=== PATIENT | male | born 1950 | race Caucasian/White ===

== ENCOUNTER 2022-11-29 09:39 | Outpatient (REF) | payer MEDICARE, SELFPAY ==
[2022-11-29 12:06] LABS: Uric Acid 9.4 mg/dL (3.4-7.0)
== END 2022-11-29 09:40 | disposition home or self-care (01) ==
LOC: HO.WFDLDS 09:39
PROVIDERS: Visit Provider Nurse Practitioner Family
DX: M10.9 Gout, unspecified (principal)
CPT/HCPCS: 36415; 84550

== ENCOUNTER 2023-10-17 09:16 | Outpatient (AMB) | payer MEDICARE, SELFPAY ==
--- OUTSIDE RECORDS SUMMARY | 2023-10-17 09:17 | XMS_ITS | Continuity of Care Document ---
Author Organization [facility] Address [address] [place] [address]- Care Team Providers Care Improvement Analyst Name Role Phone Cornelia RODRIGUEZ, Traci Acuña Primary Care Physician [place] [facility] [place] 06/29/21 - 08/08/[address] [address] Attending Physician: Brenda Piper MD Admitting Physician: Brenda Piper MD Referring Physician: Brenda Piper MD Allergies, Adverse Reactions, Alerts Substance Reaction Severity Status penicillins 1 Active 1Hives as a child Immunizations Given and Recorded Vaccine Date Status Refusal Reason influenza virus vaccine, inactivated 04/01/21 Gildardo rded influenza virus vaccine, inactivated 03/16/20 Gildardo rded influenza virus vaccine, inactivated 03/21/18 Gildardo rded influenza virus vaccine, inactivated 04/12/17 Gildardo rded influenza virus vaccine, inactivated 03/09/16 Gildardo rded influenza virus vaccine, inactivated 03/18/15 Gildardo rded SARS-CoV-2 (COVID-19) mRNA-1273 vaccine 08/05/20 R ecorded zoster vaccine, inactivated 05/16/20 Recorded zoster vaccine, inactivated 09/23/14 Recorded pneumococcal 23-valent vaccine 04/12/17 Recorded pneumococcal 23-valent vaccine 12/26/11 Recorded pneumococcal 13-valent vaccine 08/12/15 Recorded pneumococcal 13-valent vaccine 09/23/14 Recorded Influenza Virus Vaccine (oldterm) 03/01/13 Recorde d diphtheria/tetanus/pertussis, acel(DTaP) 12/26/11 Recorded Medications acetaminophen 325 mg oral tablet 975 mg, By Mouth, Every 6 hours, Refills 0, Maintenance, 10/03/20 11:32:00 EDT, Partial fill upon patient request if the prescription is for a schedule II opioid drug. Start Date: 10/03/20 Status: Ordered aspirin 81 mg oral delayed release tablet 1 tablet = 81 mg, By Mouth, Daily, # 180 tablet, 0 Refills, Maintenance, 10/03/20 11:32:00 EDT, EC Tablet, [facility] #[id number], Partial fill upon patient request if the prescription is for a schedule II opioid drug., 179, cm, 10/03/20 11:30:00... Start Date: 10/03/20 Stop Date: 04/01/21 Status: Ordered atorvastatin 80 mg oral tablet 1 tablet = 80 mg, By Mouth, Daily at bedtime, # 90 tablet, 3 Refills, Maintenance, 11/11/20 10:55:00 EDT, Tablet, [facility] #[id number], Partial fill upon patient request if the prescription is for a schedule II opioid drug., 179, cm, 11/11/20 10... Start Date: 11/11/20 Status: Ordered clopidogrel 75 mg oral tablet 1, tablet, By Mouth, Daily, # 90 tablet, Refills 3, Tot. Refills 3, Maintenance, 11/11/20 10:55:00 EDT, Route to Pharmacy Electronically, [facility] #[id number], 179, cm, 11/11/20 10:24:00 EDT, Height, 82, kg, 10/26/20 14:24:00 EDT, Dry Weight Start Date: 11/11/20 Status: Ordered Januvia 100 mg oral tablet 1 tablet, By Mouth, Daily, # 30 tablet, 5 Refills, 06/08/21 9:19:00 EST, [facility] #[id number], 178, cm, 05/21/21 10:47:00 EST, Height, 86.2, kg, 04/17/21 10:50:00 EST, Dry Weight Start Date: 06/08/21 Status: Ordered lisinopril 10 mg oral tablet 1, tablet, By Mouth, Daily in AM, # 30 tablet, Refills 2, Route to Pharmacy Electronically, [facility] #[id number], 178, cm, 05/21/21 10:47:00 EST, Height, 86.2, kg, 04/17/21 10:50:00 EST, Dry Weight Start Date: 07/14/21 Status: Ordered MetFORMIN (Eqv-Glucophage XR) 500 mg oral tablet, extended release See Instructions, TAKE 2 TABLETS BY MOUTH ONCE DAILY AT SUPPER, # 60 tablet, 5 Refills, 06/14/21 11:11:00 EST, [facility] #[id number], 178, cm, 05/21/21 10:47:00 EST, Height, 86.2, kg, 04/17/21 10:50:00 EST, Dry Weight Start Date: 06/14/21 Status: Ordered metoprolol 25 mg oral tablet, extended release 25 mg, 1, tablet, By Mouth, Daily, # 90 tablet, Refills 3, Tot. Refills 3, Maintenance, 06/03/21 15:35:00 EST, Route to Pharmacy Electronically, [facility] #[id number], Partial fill upon patient request if the prescription is for a schedule II opi... 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
--- OUTSIDE RECORDS SUMMARY | 2023-10-17 09:17 | XMS_ITS | Continuity of Care Document ---
Author Organization [facility] Address [address] [place] [address]- Care Team Providers Care Student Services Counselor Name Role Phone Braxton Goins MD Primary Care Physician [phone] [place] [facility] [place]/23 [facility] [address] [place] [id number] Allergies, Adverse Reactions, Alerts Substance Reaction Severity Status penicillins 1 Active 1Hives as a child Immunizations Given and Recorded Vaccine Date Status Refusal Reason influenza virus vaccine, inactivated 04/01/22 Gildardo rded influenza virus vaccine, inactivated 04/01/21 Gildardo rded influenza virus vaccine, inactivated 03/16/20 Gildardo rded influenza virus vaccine, inactivated 03/21/18 Gildardo rded influenza virus vaccine, inactivated 04/12/17 Gildardo rded influenza virus vaccine, inactivated 03/09/16 Gildardo rded influenza virus vaccine, inactivated 03/18/15 Gildardo rded SARS-CoV-2 (COVID-19) mRNA-1273 vaccine 07/07/21 R ecorded SARS-CoV-2 (COVID-19) mRNA-1273 vaccine 08/05/20 R ecorded zoster vaccine, inactivated 05/16/20 Recorded zoster vaccine, inactivated 09/23/14 Recorded pneumococcal 23-valent vaccine 04/12/17 Recorded pneumococcal 23-valent vaccine 12/26/11 Recorded pneumococcal 13-valent vaccine 08/12/15 Recorded pneumococcal 13-valent vaccine 09/23/14 Recorded Influenza Virus Vaccine (oldterm) 03/01/13 Recorde d diphtheria/tetanus/pertussis, acel(DTaP) 12/26/11 Recorded Medications aspirin 81 mg oral delayed release tablet 1 tablet = 81 mg, By Mouth, Daily, # 180 tablet, 0 Refills, Maintenance, 10/03/20 11:32:00 EDT, EC Tablet, [facility] #[id number], Partial fill upon patient request if the prescription is for a schedule II opioid drug., 179, cm, 10/03/20 11:30:00... Start Date: 10/03/20 Stop Date: 04/01/21 Status: Ordered atorvastatin 80 mg oral tablet 1 tablet, By Mouth, Daily at bedtime, # 90 tablet, 1 Refills, Maintenance, 03/01/23 7:38:00 EDT, [facility] #[id number], 171.5, cm, 11/24/22 8:58:00 EDT, Height, 86.2, kg, 04/17/21 10:50:00 EST, Dry Weight Start Date: 03/01/23 Status: Ordered Golytely - oral powder for reconstitution See Instructions, drink half after 5pm evening before procedure, finish remaining half 6 hours prior to procedure time, # 4,000 mL, 0 Refills, Maintenance, 04/20/23 14:16:00 EST, [facility]/pharmacy #[id number], Partial fill upon patient request if the prescriptio... Start Date: 04/20/23 Status: Ordered hydrochlorothiazide 25 mg oral tablet 12.5 mg, 0.5, tablet, By Mouth, Daily, # 30 tablet, Refills 3, Tot. Refills 3, 05/05/23 15:18:00 EST, Route to Pharmacy Electronically, [facility] #[id number], 178, cm, 05/01/23 10:35:00 EST, Height, 84.7, kg, 05/01/23 10:35:00 EST, Dry Weight Start Date: 05/05/23 Status: Ordered Januvia 100 mg oral tablet 1 tablet, By Mouth, Daily, # 30 tablet, 5 Refills, Maintenance, 03/02/23 6:46:00 EDT, [facility] #[id number], 171.5, cm, 11/24/22 8:58:00 EDT, Height, 86.2, kg, 04/17/21 10:50:00 EST, Dry Weight Start Date: 03/02/23 Status: Ordered lisinopril 20 mg oral tablet 1, tablet, By Mouth, Daily, # 30 tablet, Refills 4, Maintenance, 05/30/23 7:47:00 EST, Route to Pharmacy Electronically, [facility] #[id number], 178, cm, 05/01/23 10:35:00 EST, Height, 84.7, kg, 05/01/23 10:35:00 EST, Dry Weight Start Date: 05/30/23 Status: Ordered lisinopril 20 mg oral tablet 1, tablet, By Mouth, Daily, # 30 tablet, Refills 0, Maintenance, 05/01/23 7:22:00 EST, Route to Pharmacy Electronically, [facility] #[id number], 178, cm, 04/02/23 10:09:00 EDT, Height, 82.6, kg, 04/02/23 10:09:00 EDT, Dry Weight Start Date: 05/01/23 Status: Ordered metoprolol 25 mg oral tablet, extended release 25 mg, 1, tablet, By Mouth, Daily, # 90 tablet, Refills 3, Tot. Refills 3, Maintenance, 08/11/22 12:35:00 EST, Route to Pharmacy Electronically, [facility] #[id number], Partial fill upon patient request if the prescription is for a schedule II opi... Start Date: 08/11/22 Stop Date: 08/06/23 Status: Ordered nitroglycerin 0.4 mg sublingual spray 1 sprays = 0.4 mg, Sublingual, Every 5 minutes, PRN as needed for chest pain, not to exceed 3 doses/15 min--if pain persists, seek medical attention, # 4.9 Gm, 0 Refills, Maintenance, 04/02/23 17:52:00 EDT, [place], [facility]/pharmacy #[id number], Partial fill upon... Start Date: 04/02/23 Status: Ordered tamsulosin 0.4 mg oral capsule 0.8 mg, 2, capsule, By Mouth, Daily at bedtime, # 180 capsule, Refills 1, Tot. Refills 1, Maintenance, 11/24/22 9:32:00 EDT, Route to Pharmacy Electronically, [facility] #[id number], 171.5, cm, 11/24/22 8:58:00 EDT, Height, 86.2, kg, 04/17/21 10:5... 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 Active Urinary frequency Confirmed Active Irritable bowel syndrome Confirmed Active Hypercholesterolemia Confirmed Active Rhinitis Confirmed Active Steatosis of liver Confirmed Active DMII (diabetes mellitus, type 2) Confirmed Active Social History Social History Type Response Smoking Status Former smoker, quit more than 30 days ago; Other: quit 1981; entered on: 09/21/20 Sex Patient Care team information Care Team Personnel Name: Raymond MONZON, Lena Knapp Position: [facility] RN Member Role: Primary Care Nurse Name: Robinson Kaufman RN Position: [facility] ED RN W/OE and Tasks Member Role: Primary Care Nurse Name: Genesis Workman Position: [facility] RN Member Role: Primary Care Nurse Name: Donna Quinonez RN Position: [facility] RN Member Role: Primary Care Nurse Name: Elodia Bright RN Position: [facility] AMB Nurse Member Role: Primary Care Nurse Name: Samantha Oviedo RN Position: [facility] RN Member Role: Primary Care Nurse Name: Braxton Goins MD Position: [facility] Physician - Primary Care Member Role: PCP Address: Address: [address] [place] [address], [address] [place] [address]- Name: Elal Means RN Position: [facility] RN Member Role: Primary Care Nurse Care Team Related Persons Name: RODNEY THORPE Address: home [address] [place] [address] Name: JANELLE THORPE Address: [address] [place] [address]
--- OUTSIDE RECORDS SUMMARY | 2023-10-17 09:17 | XMS_ITS | Continuity of Care Document ---
Author Organization [facility] Address [address] [address]- Care Team Providers Care Fast Food Crew Lead Name Role Phone Cornelia RODRIGUEZ, Traci Acuña Primary Care Physician [place] [facility] [place]20 [facility] [address] [address]- Attending Physician: Pavel Anderson MD Referring Physician: Gianluca Garrett MD Allergies, Adverse Reactions, Alerts Substance Reaction Severity Status penicillins 1 Active 1Hives as a child Immunizations Given and Recorded Vaccine Date Status Refusal Reason influenza virus vaccine, inactivated 03/16/20 Gildardo rded pneumococcal 13-valent vaccine 09/23/14 Recorded zoster vaccine, inactivated 09/23/14 Recorded Influenza Virus Vaccine (oldterm) 03/01/13 Recorde d pneumococcal 23-valent vaccine 12/26/11 Recorded diphtheria/tetanus/pertussis, acel(DTaP) 12/26/11 Recorded Medications acetaminophen 325 mg oral tablet 975 mg, By Mouth, Every 6 hours, Refills 0, Maintenance, 10/03/20 11:32:00 EDT, Partial fill upon patient request if the prescription is for a schedule II opioid drug. Start Date: 10/03/20 Status: Ordered amiodarone 200 mg oral tablet 200 mg, 1, tablet, By Mouth, 2 times a day, # 60 tablet, Refills 0, Tot. Refills 0, Maintenance, 10/03/20 11:32:00 EDT, Route to Pharmacy Electronically, [facility] #[id number], Partial fill uponpatient request if the prescription is for a schedu... Start Date: 10/03/20 Status: Ordered aspirin 81 mg oral delayed release tablet 1 tablet = 81 mg, By Mouth, Daily, # 180 tablet, 0 Refills, Maintenance, 10/03/20 11:32:00 EDT, EC Tablet, [facility] #[id number], Partial fill upon patient request if the prescription is for a schedule II opioid drug., 179, cm, 10/03/20 11:30:00... Start Date: 10/03/20 Stop Date: 04/01/21 Status: Ordered atorvastatin 80 mg oral tablet 1 tablet = 80 mg, By Mouth, Daily at bedtime, # 30 tablet, 5 Refills, Maintenance, 10/17/20 14:50:00 EDT, Tablet, [facility] #[id number], Partial fill upon patient request if the prescription is for a schedule II opioid drug., 179, cm, 10/13/20 10... Start Date: 10/17/20 Status: Ordered Januvia 100 mg oral tablet 1 tablet, By Mouth, Daily, # 30 tablet, 5 Refills, Maintenance, 09/17/20 12:34:00 EDT, [facility] #[id number] Start Date: 09/17/20 Status: Ordered Lasix 40 mg oral tablet 40 mg, 1, tablet, By Mouth, Daily, # 30 tablet, Refills 0, Tot. Refills 0, Maintenance, 10/03/20 11:33:00 EDT, Route to Pharmacy Electronically, [facility] #[id number], Partial fill upon patient request if the prescription is for a schedule II opi... Start Date: 10/03/20 Status: Ordered MetFORMIN (Eqv-Glucophage XR) 500 mg oral tablet, extended release See Instructions, TAKE 2 TABLETS BY MOUTH ONCE DAILY AT SUPPER, # 60 tablet, 5 Refills, Maintenance, [facility] #[id number] Start Date: 09/17/20 Status: Ordered metoprolol 100 mg oral tablet, extended release 100 mg, 1, tablet, By Mouth, Daily, # 30 tablet, Refills 0, Tot. Refills 0, Maintenance, 10/03/20 11:33:00 EDT, Route to Pharmacy Electronically, [facility] #[id number], Partial fill upon patientrequest if the prescription is for a schedule II op... Start Date: 10/03/20 Status: Ordered Plavix 75 mg oral tablet 75 mg, 1, tablet, By Mouth, Daily, # 30 tablet, Refills 0, Tot. Refills 0, Maintenance, 10/03/20 11:32:00 EDT, Route to Pharmacy Electronically, [facility] #[id number], Partial fill upon patient request if the prescription is for a schedule II opi... Start Date: 10/03/20 Status: Ordered potassium chloride 10 mEq oral tablet, extended release 4 tablet = 40 mEq, By Mouth, Daily, discontinue when lasix stopped, # 120 tablet, 0 Refills, Maintenance, 10/03/20 11:35:00 EDT, ER Tablet, [facility] #[id number], Partial fill upon patient request if the prescription is for a schedule II opioid d... 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 Irritable bowel syndrome(Confirmed) Active Hypercholesterolemia(Confirmed) Active Rhinitis(Confirmed) Active Steatosis of liver(Confirmed) Active DMII (diabetes mellitus, typ e 2)(Confirmed) Active Vital Signs Most recent to oldest [Reference Range]: 1 Height 179 cm (10/13/20 10:28 AM) Weight 82.10 kg (10/13/20 10: AM) Oxygen Saturation [94-100 %] 99 % (10/13/20 10: AM) Pulse Rate [55-90 bpm] 60 bpm (10/13/20 10:28 AM) Body Mass Index [18.5-24.99] 25.62 *H* (10/13/20 10:28 AM) Blood Pressure [90-138/55-84 mm Hg] 112/ 70mm Hg (10/13/20 10:28 AM) Respiratory Rate [16-30 br/min] 16 br/mi n (10/13/20 10:28 AM) Temperature [96.8-100.4 DegF] 98.4 DegF (10/13/20 10: AM) Mode of Delivery (Oxygen) Room air (10/13/20 10:28 AM) Blood pressure sites Arm, right (10/13/20 10:28 AM) Temperature Route Oral (10/13/20 10:28 AM) Weight Obtained Via Patient/family state d (10/13/20 10:28 AM) Social History Social History Type Response Smoking Status Former smoker, quit more than 30 days ago; Other: quit 1981; entered on: 09/21/20 Sex
--- OUTSIDE RECORDS SUMMARY | 2023-10-17 09:17 | XMS_ITS | Continuity of Care Document ---
Author Organization [facility] Address [address] [place] [address]- Care Team Providers Care Restaurant Crew Name Role Phone Cornelia RODRIGUEZ, Traci Acuña Primary Care Physician [place] [facility] [place] 05/08/22 [facility] [address] [place] [address]- Attending Physician: Brenda Piper MD Admitting Physician: Brenda Piper MD Allergies, Adverse Reactions, Alerts Substance Reaction Severity Status penicillins 1 Active 1Hives as a child Immunizations Given and Recorded Vaccine Date Status Refusal Reason SARS-CoV-2 (COVID-19) mRNA-1273 vaccine 07/07/21 R ecorded SARS-CoV-2 (COVID-19) mRNA-1273 vaccine 08/05/20 R ecorded influenza virus vaccine, inactivated 04/01/21 Gildardo rded influenza virus vaccine, inactivated 03/16/20 Gildardo rded influenza virus vaccine, inactivated 03/21/18 Gildardo rded influenza virus vaccine, inactivated 04/12/17 Gildardo rded influenza virus vaccine, inactivated 03/09/16 Gildardo rded influenza virus vaccine, inactivated 03/18/15 Gildardo rded zoster vaccine, inactivated 05/16/20 Recorded zoster vaccine, [...] 10/03/20 11:32:00 EDT, EC Tablet, [facility] #[id number], Partial fill upon patient request if the prescription is for a schedule II opioid drug., 179, cm, 10/03/20 11:30:00... Start Date: 10/03/20 Stop Date: 04/01/21 Status: Ordered atorvastatin 80 mg oral tablet 1 tablet, By Mouth, Daily at bedtime, # 90 tablet, 3 Refills, 03/07/22 8:51:00 EDT, [facility] #[id number], 178, cm, 01/07/22 10:54:00 EDT, Height, 86.2, kg, 04/17/21 10:50:00 EST, Dry Weight Start Date: 03/07/22 Status: Ordered hydrochlorothiazide 25 mg oral tablet 12.5 mg, 0.5, tablet, By Mouth, Daily, # 30 tablet, Refills 8, 01/07/22 16:41:00 EDT, Route to Pharmacy Electronically, [facility] #[id number], 178, cm, 10/07/21 8:40:00 EDT, Height, 86.2, kg, 04/17/21 10:50:00 EST, Dry Weight Start Date: 12/22/21 Status: Ordered Januvia 100 mg oral tablet 1 tablet, By Mouth, Daily, # 30 tablet, 5 Refills, [facility] #[id number], 178, cm, 10/07/21 8:40:00 EDT, Height, 86.2, kg, 04/17/21 10:50:00 EST, Dry Weight Start Date: 11/22/21 Status: Ordered lisinopril 20 mg oral tablet 20 mg, 1, tablet, By Mouth, Daily, # 30 tablet, Refills 6, Tot. Refills 6, Maintenance, 10/01/21 10:53:00 EDT, Route to Pharmacy Electronically, [facility] #[id number], Partial fill upon patient request if the prescription is for a schedule II opi... Start Date: 10/01/21 Status: Ordered lisinopril 20 mg oral tablet 1, tablet, By Mouth, Daily, # 30 tablet, Refills 11, Maintenance, 05/01/22 10:23:00 EST, Route to Pharmacy Electronically, [facility] #[id number], 178, cm, 01/07/22 10:54:00 EDT, Height, 86.2, kg, 04/17/21 10:50:00 EST, Dry Weight Start Date: 05/01/22 Status: Ordered MetFORMIN (Eqv-Glucophage XR) 500 mg oral tablet, extended release See Instructions, TAKE 2 TABLETS BY MOUTH EVERY DAY AT SUPPER, # 60 tablet, 5 Refills, [facility] #[id number], 178, cm, 10/07/21 8:40:00 EDT, Height, 86.2, kg, 04/17/21 10:50:00 EST, Dry Weight Start Date: 12/22/21 Status: Ordered metoprolol 25 mg oral tablet, extended release 25 mg, 1, tablet, By Mouth, Daily, # 90 tablet, Refills 3, Tot. Refills 3, Maintenance, 06/03/21 15:35:00 EST, Route to Pharmacy Electronically, [facility] #[id number], Partial fill upon patient request if the prescription is for a schedule II opi... 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 RN Member Role: Primary Care Nurse Name: Laura Shook RN Position: [facility] RN Member Role: Primary Care Nurse Name: Lena Andrade RN Position: [facility] RN Member Role: Primary Care Nurse Name: Robinson Kaufman RN Position: [facility] RN Member Role: Primary Care Nurse Name: Genesis Workman Position: [facility] RN Member Role: Primary Care Nurse Name: Donna Quinonez RN Position: [facility] RN Member Role: Primary Care Nurse Name: Elodia Bright RN Position: [facility] PCO RN Member Role: Primary Care Nurse Name: Cornelia RODRIGUEZ, Traci Acuña Position: [facility] Primary Care Physician Member Role: PCP Address: Address: [address] [place] [id number] Name: Samantha Oviedo RN Position: [facility] RN Member Role: Primary Care Nurse Name: Bebe Tam RN Position: [facility] RN Member Role: Primary Care Nurse Name: Ella Means RN Position: [facility] RN Member Role: Primary Care Nurse Care Team Related Persons Name: RODNEY THORPE Address: home [address] [place] [id number] Name: JANELLE THORPE Address: [address] [address]
--- OUTSIDE RECORDS SUMMARY | 2023-10-17 09:17 | XMS_ITS | Continuity of Care Document ---
Author Organization [facility] Address [address] [place] [phone]- Care Team Providers Care Lye Peel Operator Name Role Phone Cornelia RODRIGUEZ, Traci Acuña Primary Care Physician [place] [facility] [place] 11[place]11[place]21 - 12/11/21 [facility] [address] [place] [address]- Attending Physician: Cherelle Beckman Admitting Physician: AdmtrCherelle Referring Physician: Admtr, Ar8 Allergies, Adverse Reactions, Alerts Substance Reaction Severity [...] Refills, Maintenance, 10/03/20 11:32:00 EDT, EC Tablet, [facility] #[id number], Partial fill upon patient request if the prescription is for a schedule II opioid drug., 179, cm, 10/03/20 11:30:00... Start Date: 10/03/20 Stop Date: 04/01/21 Status: Ordered atorvastatin 80 mg oral tablet 1 tablet, By Mouth, Daily at bedtime, # 90 tablet, 0 Refills, [facility] #[id number], 178, cm, 10/07/21 8:40:00 EDT, Height, 86.2, kg, 04/17/21 10:50:00 EST, Dry Weight Start Date: 11/21/21 Status: Ordered hydrochlorothiazide 25 mg oral tablet 25 mg, 1, tablet, By Mouth, Daily, # 30 tablet, Refills 1, Tot. Refills 1, Maintenance, 10/21/21 11:10:00 EDT, Route to Pharmacy Electronically, [facility] #[id number], 178, cm, 10/07/21 8:40:00 EDT, Height, 86.2, kg, 04/17/21 10:50:00 EST, Dry We... Start Date: 10/21/21 Stop Date: 12/20/21 Status: Ordered Januvia 100 mg oral tablet 1 tablet, By Mouth, Daily, # 30 tablet, 5 Refills, [facility] #[id number], 178, cm, 10/07/21 8:40:00 EDT, Height, 86.2, kg, 04/17/21 10:50:00 EST, Dry Weight Start Date: 11/22/21 Status: Ordered lisinopril 20 mg oral tablet 20 mg, 1, tablet, By Mouth, Daily, # 30 tablet, Refills 6, Tot. Refills 6, Maintenance, 10/01/21 10:53:00 EDT, Route to Pharmacy Electronically, [facility] #[id number], Partial fill upon patient request if the prescription is for a schedule II opi... Start Date: 10/01/21 Status: Ordered MetFORMIN (Eqv-Glucophage XR) 500 mg oral tablet, extended release See Instructions, TAKE 2 TABLETS BY MOUTH ONCE DAILY AT SUPPER, # 60 tablet, 5 Refills, 06/14/21 11:11:00 EST, [facility] #[id number], 178, cm, 05/21/21 10:47:00 EST, Height, 86.2, kg, 04/17/21 10:50:00 EST, Dry Weight Start Date: 06/14/21 Status: Ordered metoprolol 25 mg oral tablet, extended release 25 mg, 1, tablet, By Mouth, Daily, # 90 tablet, Refills 3, Tot. Refills 3, Maintenance, 06/03/21 15:35:00 EST, Route to Pharmacy Electronically, [facility] #[id number], Partial fill upon patient request if the [...]
--- OUTSIDE RECORDS SUMMARY | 2023-10-17 09:18 | XMS_ITS | Continuity of Care Document ---
Author Organization [facility] Address [address] [address]- Care Team Providers Care Field Geologist Name Role Phone Cornelia RODRIGUEZ, Traci Acuña Primary Care Physician Encounter [facility] Date(s): 10/13/20 - 11/12/20 [facility] [address] [place] [address]- Attending Physician: Admtr, [id number] Admitting Physician: Admtr, Ar8 Referring Physician: Admtr, Ar8 Allergies, Adverse Reactions, Alerts Substance Reaction Severity Status penicillins 1 Active 1Hives as a child Immunizations Given and Recorded Vaccine Date Status Refusal Reason SARS-CoV-2 (COVID-19) [id number] vaccine 08/05/20 R ecorded zoster vaccine, inactivated 05/16/20 Recorded zoster vaccine, inactivated 09/23/14 Recorded influenza virus vaccine, inactivated 03/16/20 Gildardo rded influenza virus vaccine, inactivated 03/21/18 Gildardo rded influenza virus vaccine, inactivated 04/12/17 Gildardo rded influenza virus vaccine, inactivated 03/09/16 Gildardo rded influenza virus vaccine, inactivated 03/18/15 Gildardo rded pneumococcal 23-valent vaccine 04/12/17 Recorded pneumococcal 23-valent [...] Refills, Maintenance, 10/03/20 11:32:00 EDT, EC Tablet, [facility] #[id number], Partial fill upon patient request if the prescription is for a schedule II opioid drug., 179, cm, 10/03/20 11:30:00... Start Date: 10/03/20 Stop Date: 04/01/21 Status: Ordered atorvastatin 80 mg oral tablet 1 tablet = 80 mg, By Mouth, Daily at bedtime, # 90 tablet, 3 Refills, Maintenance, 11/11/20 10:55:00 EDT, Tablet, [facility] #[id number], Partial fill upon patient request if the prescription is for a schedule II opioid drug., 179, cm, 11/11/20 10... Start Date: 11/11/20 Status: Ordered clopidogrel 75 mg oral tablet 1, tablet, By Mouth, Daily, # 90 tablet, Refills 3, Tot. Refills 3, Maintenance, 11/11/20 10:55:00 EDT, Route to Pharmacy Electronically, [facility] #[id number], 179, cm, 11/11/20 10:24:00 EDT, Height, 82, kg, 10/26/20 14:24:00 EDT, Dry Weight Start Date: 11/11/20 Status: Ordered Januvia 100 mg oral tablet 1 tablet, By Mouth, Daily, # 30 tablet, 5 Refills, Maintenance, 09/17/20 12:34:00 EDT, [facility] #[id number] Start Date: 09/17/20 Status: Ordered MetFORMIN (Eqv-Glucophage XR) 500 mg oral tablet, extended release See Instructions, TAKE 2 TABLETS BY MOUTH ONCE DAILY AT SUPPER, # 60 tablet, 5 Refills, Maintenance, [facility] #[id number] Start Date: 09/17/20 Status: Ordered metoprolol 50 mg oral tablet, extended release 50 mg, 1, tablet, By Mouth, Daily, # 90 tablet, Refills 0, Tot. Refills 0, Maintenance, 11/11/20 10:51:00 EDT, Route to Pharmacy Electronically, [facility] #[id number], Partial fill upon patient request if the prescription is for a schedule II opi... 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
--- OUTSIDE RECORDS SUMMARY | 2023-10-17 09:18 | XMS_ITS | Continuity of Care Document ---
Author Organization [facility] Address [address] [place] [address]- Care Team Providers Care Steel Fabricator Name Role Phone Cornelia RODRIGUEZ, Traci Acuña Primary Care Physician Encounter [facility] [place] Date(s): 09/24/20 - 10/24/[address] [address]- Attending Physician: Not on Staff, Attending MD Admitting Physician: Not on Staff, Admitting MD Referring Physician: Not on Staff, Referring MD Allergies, Adverse Reactions, Alerts Substance Reaction [...] 10/03/20 11:32:00 EDT, Route to Pharmacy Electronically, [facility] #[id number], Partial fill uponpatient request if the prescription is for a schedu... Start Date: 10/03/20 Status: Ordered aspirin 81 mg oral delayed release tablet 1 tablet = 81 mg, By Mouth, Daily, # 180 tablet, 0 Refills, Maintenance, 10/03/20 11:32:00 EDT, EC Tablet, [facility] #[id number], Partial fill upon patient request if the prescription is for a schedule II opioid drug., 179, cm, 10/03/20 11:30:00... Start Date: 10/03/20 Stop Date: 04/01/21 Status: Ordered atorvastatin 80 mg oral tablet 1 tablet = 80 mg, By Mouth, Daily at bedtime, # 30 tablet, 5 Refills, Maintenance, 10/17/20 14:50:00 EDT, Tablet, [facility] #[id number], Partial fill upon patient request if the prescription is for a schedule II opioid drug., 179, cm, 10/13/20 10... Start Date: 10/17/20 Status: Ordered Januvia 100 mg oral tablet 1 tablet, By Mouth, Daily, # 30 tablet, 5 Refills, Maintenance, 09/17/20 12:34:00 EDT, [facility] #[id number] Start Date: 09/17/20 Status: Ordered Lasix 40 mg oral tablet 40 mg, 1, tablet, By Mouth, Daily, # 30 tablet, Refills 0, Tot. Refills 0, Maintenance, 10/03/20 11:33:00 EDT, Route to Pharmacy Electronically, [facility] #[id number], Partial fill upon patient request if the prescription is for a schedule II opi... Start Date: 10/03/20 Status: Ordered MetFORMIN (Eqv-Glucophage XR) 500 mg oral tablet, extended release See Instructions, TAKE 2 TABLETS BY MOUTH ONCE DAILY AT SUPPER, # 60 tablet, 5 Refills, Maintenance, [facility] #[id number] Start Date: 09/17/20 Status: Ordered metoprolol 100 mg oral tablet, extended release 100 mg, 1, tablet, By Mouth, Daily, # 30 tablet, Refills 0, Tot. Refills 0, Maintenance, 10/03/20 11:33:00 EDT, Route to Pharmacy Electronically, [facility] #[id number], Partial fill upon patientrequest if the prescription is for a schedule II op... Start Date: 10/03/20 Status: Ordered Plavix 75 mg oral tablet 75 mg, 1, tablet, By Mouth, Daily, # 30 tablet, Refills 0, Tot. Refills 0, Maintenance, 10/03/20 11:32:00 EDT, Route to Pharmacy Electronically, [facility] #[id number], Partial fill upon patient request if the prescription is for a schedule II opi... Start Date: 10/03/20 Status: Ordered potassium chloride 10 mEq oral tablet, extended release 4 tablet = 40 mEq, By Mouth, Daily, discontinue when lasix stopped, # 120 tablet, 0 Refills, Maintenance, 10/03/20 11:35:00 EDT, ER Tablet, [facility] #[id number], Partial fill upon patient request if the [...]
--- OUTSIDE RECORDS SUMMARY | 2023-10-17 09:18 | XMS_ITS | Continuity of Care Document ---
Author Organization [facility] Address [address] [place] [address]- Care Team Providers Care Dog Boarder Name Role Phone Cornelia RODRIGUEZ, Traic Acuña Primary Care Physician Encounter [facility] Date(s): 10/12/20 - 11/11/[address] [address] Allergies, Adverse Reactions, Alerts Substance Reaction Severity Status penicillins 1 Active 1Hives as a child Immunizations Given and Recorded Vaccine Date Status Refusal Reason SARS-CoV-2 (COVID-19) [id number] vaccine 08/05/20 R ecorded zoster vaccine, inactivated [...] Refills, Maintenance, 10/03/20 11:32:00 EDT, EC Tablet, [facility] #[id number], Partial fill upon patient request if the prescription is for a schedule II opioid drug., 179, cm, 10/03/20 11:30:00... Start Date: 10/03/20 Stop Date: 04/01/21 Status: Ordered atorvastatin 80 mg oral tablet 1 tablet = 80 mg, By Mouth, Daily at bedtime, # 90 tablet, 3 Refills, Maintenance, 11/11/20 10:55:00 EDT, Tablet, [facility] #[id number], Partial fill upon patient request if the prescription is for a schedule II opioid drug., 179, cm, 11/11/20 10... Start Date: 11/11/20 Status: Ordered clopidogrel 75 mg oral tablet 1, tablet, By Mouth, Daily, # 90 tablet, Refills 3, Tot. Refills 3, Maintenance, 11/11/20 10:55:00 EDT, Route to Pharmacy Electronically, [facility] #[id number], 179, cm, 11/11/20 10:24:00 EDT, Height, 82, kg, 10/26/20 14:24:00 EDT, Dry Weight Start Date: 11/11/20 Status: Ordered Januvia 100 mg oral tablet 1 tablet, By Mouth, Daily, # 30 tablet, 5 Refills, Maintenance, 09/17/20 12:34:00 EDT, [facility][id number] Start Date: 09/17/20 Status: Ordered MetFORMIN (Eqv-Glucophage XR) 500 mg oral tablet, extended release See Instructions, TAKE 2 TABLETS BY MOUTH ONCE DAILY AT SUPPER, # 60 tablet, 5 Refills, Maintenance, [facility] #[id number] Start Date: 09/17/20 Status: Ordered metoprolol 50 mg oral tablet, extended release 50 mg, 1, tablet, By Mouth, Daily, # 90 tablet, Refills 0, Tot. Refills 0, Maintenance, 11/11/20 10:51:00 EDT, Route to Pharmacy Electronically, [facility] #[id number], Partial fill upon patient request if the [...]
--- OUTSIDE RECORDS SUMMARY | 2023-10-17 09:18 | XMS_ITS | Continuity of Care Document ---
Author Organization [facility] Address [address] [place] [id number]- Care Team Providers Care Drawing Hand Name Role Phone Cornelia RODRIGUEZ, Traci M Primary Care Physician Encounter [facility] Date(s): 09/21/20 - 10/03/[address] [id number] Discharge Disposition: A-D/C Home Attending Physician: Monica RODRIGUEZ, Pavel Otero Admitting Physician: Abdoul Uribe MD Referring Physician: Not on Staff, Referring [...] 10/03/20 11:32:00 EDT, Route to Pharmacy Electronically, [facility] #[id number], Partial fill uponpatient request if the prescription is for a schedu... Start Date: 10/03/20 Status: Ordered aspirin 81 mg oral delayed release tablet 1 tablet = 81 mg, By Mouth, Daily, # 180 tablet, 0 Refills, Maintenance, 10/03/20 11:32:00 EDT, EC Tablet, [facility] #[id number], Partial fill upon patient request if the prescription is for a schedule II opioid drug., 179, cm, 10/03/20 11:30:00... Start Date: 10/03/20 Stop Date: 04/01/21 Status: Ordered atorvastatin 80 mg oral tablet 1 tablet = 80 mg, By Mouth, Daily at bedtime, # 30 tablet, 0 Refills, Maintenance, 10/03/20 11:32:00 EDT, Tablet, [facility] #[id number], Partial fill upon patient request if the prescription is for a schedule II opioid drug., 179, cm, 10/03/20 11... Start Date: 10/03/20 Status: Ordered gabapentin 100 mg oral capsule 200 mg, Capsule, By Mouth, 10/03/20 9:00:00 EDT Start Date: 10/03/20 Stop Date: 10/03/20 Status: Completed Januvia 100 mg oral tablet 1 tablet, By Mouth, Daily, # 30 tablet, 5 Refills, Maintenance, 09/17/20 12:34:00 EDT, [facility] #[id number] Start Date: 09/17/20 Status: Ordered Lasix 40 mg oral tablet 40 mg, 1, tablet, By Mouth, Daily, # 30 tablet, Refills 0, Tot. Refills 0, Maintenance, 10/03/20 11:33:00 EDT, Route to Pharmacy Electronically, [facility] #[id number], Partial fill upon patient request if the prescription is for a schedule II opi... Start Date: 10/03/20 Status: Ordered MetFORMIN (Eqv-Glucophage XR) 500 mg oral tablet, extended release See Instructions, TAKE 2 TABLETS BY MOUTH ONCE DAILY AT SUPPER, # 60 tablet, 5 Refills, Maintenance, [facility] #[id number] Start Date: 09/17/20 Status: Ordered metoprolol 100 mg oral tablet, extended release 100 mg, 1, tablet, By Mouth, Daily, # 30 tablet, Refills 0, Tot. Refills 0, Maintenance, 10/03/20 11:33:00 EDT, Route to Pharmacy Electronically, [facility] #[id number], Partial fill upon patientrequest if the prescription is for a schedule II op... Start Date: 10/03/20 Status: Ordered Metoprolol IR Tablet 50 mg, Tablet, By Mouth, When extubated, HOLD for HR less than 70 or SBP less than 100 or if on Vasopressors, 10/03/20 9:00:00 EDT Start Date: 10/03/20 Stop Date: 10/03/20 Status: Completed Plavix 75 mg oral tablet 75 mg, 1, tablet, By Mouth, Daily, # 30 tablet, Refills 0, Tot. Refills 0, Maintenance, 10/03/20 11:32:00 EDT, Route to Pharmacy Electronically, [facility] #[id number], Partial fill upon patient request if the prescription is for a schedule II opi... Start Date: 10/03/20 Status: Ordered potassium chloride 10 mEq oral tablet, extended release 4 tablet = 40 mEq, By Mouth, Daily, discontinue when lasix stopped, # 120 tablet, 0 Refills, Maintenance, 10/03/20 11:35:00 EDT, ER Tablet, [facility] #[id number], Partial fill upon patient request if the prescription is for a schedule II opioid d... 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 LUNGS AND PLEURA: Low lung volumes. Unchanged left lower lobe airspace opacity, likely representing atelectasis. Slightly increased prominence of interstitial markings bilaterally. Unchanged small right apical pneumothorax, with a 1.2 cm of pleural separation. Small left pleural effusion. No right-sided effusion. HEART, MEDIASTINUM AND MICAH: Mild prominence of the cardiac silhouette, unchanged. Normal upper mediastinal and hilar contour. BONES AND SOFT TISSUES: No acute abnormality. Median sternotomy wires are intact. IMPRESSION: * Unchanged small right apical pneumothorax and small pleural effusion. * Unchanged left lower lobe opacity likely representing atelectasis. * Increased prominence of interstitial markings likely reflecting mild interstitial edema. I have personally reviewed the images and I agree with this report. WSN: [id number] Ordering Physician: Josh Eason Dictated By: Piper Emmanuel MD Dictated Date/Time: 10/03/20 4:01 pm Reviewed By: Jay Prescott MD Signed By: Jay Prescott MD Signed Date/Time: 10/03/20 4:06 pm Transcribed By: SHAHBAZ Transcribed Date/Time: 10/03/20 12:18 pm * Exam Date Time Procedure Performing Provider Status 10/02/20 6:27 PM Chest Portable Olga Puentes; Renee (Verified) Notes: (Chest Portable) Reason For Exam: Shortness of Breath RESULT: Chest Portable Chest Portable Reason: Shortness of Breath; Clinical Question(s): Pneumothorax COMPARISON: X-ray from 10/02/2020 FINDINGS: LINES AND TUBES: None. LUNGS AND PLEURA: Small left apical pneumothorax reported on the prior study is decreased without the only 0.6 cm, previously 1.2 cm. There is some atelectasis at the left lung base with adjacent small left pleural effusion. The right lung is clear. HEART, MEDIASTINUM AND MICAH: Status post median sternotomy. Mild prominence of the cardiac silhouette, unchanged. Normal upper mediastinal and hilar contour. BONES AND SOFT TISSUES: No acute abnormality. IMPRESSION: Previously reported small left apical pleural effusion is decreased by 50%, now trace. There is a small left pleural effusion with some adjacent atelectasis not significantly changed. WSN: [id number] Ordering Physician: Josh Eason Dictated By: Ankit Arreola MD Dictated Date/Time: 10/02/20 6:30 pm Reviewed By: Ankit Arreola MD Signed By: Ankit Arreola MD Signed Date/Time: 10/02/20 6:30 pm Transcribed By: SHAHBAZ Transcribed Date/Time: 10/02/20 6:29 pm * Exam Date Time Procedure Performing Provider Status 10/02/20 3:48 PM Chest Portable Lu Pagan; Renee (Verified) Notes: (Chest Portable) Reason For Exam: PCT removal;Other: RESULT: Chest Portable Chest Portable Reason: Other:; PCT removal; Clinical Question(s): Pneumothorax COMPARISON: Multiple priors, most recent dated 10/02/2020 FINDINGS: LINES AND TUBES: Interval removal of the previously seen left-sided chest tube and mediastinal drain. Few EKG leads overlie the chest wall. LUNGS AND PLEURA: There is small left pneumothorax measuring approximately 1.2 cm of pleural separation at the left apex. Again noted are heterogeneous airspace opacities in the left lower lung, likely secondary to atelectasis. No focal opacity in the right lung. The lung volumes are low. No pleural effusion. No right pneumothorax. HEART, MEDIASTINUM AND MICAH: Patient is post median sternotomy and CABG. Stable cardiac silhouette. Normal upper mediastinal and hilar contour. BONES AND SOFT TISSUES: No acute abnormality. IMPRESSION: Small left pneumothorax, measuring approximately 1.2 cm of pleural separation at the left apex, likely related to recent removal of the left-sided chest tube. Mild left basilar atelectasis. . A Red message has been communicated via the [employer] system on 10/02/2020 4:10 PM, Message ID [id number]. WSN: [id number] Ordering Physician: Josh Eason Dictated By: Mariah Romeo MD Dictated Date/Time: 10/02/20 4:10 pm Reviewed By: Mariah Romeo MD Signed By: Mariah Romeo MD Signed Date/Time: 10/02/20 4:10 pm Transcribed By: SHAHBAZ Transcribed Date/Time: 10/02/20 4:07 pm * Exam Date Time Procedure Performing Provider Status 10/02/20 10:31 AM Chest Portable Maren Wells; Cynthia luna (Verified) Notes: (Chest Portable) Reason For Exam: Shortness of Breath RESULT: Chest Portable Chest Portable Reason: Shortness of Breath; Clinical Question(s): Pleural Effusion COMPARISON: Multiple priors, most recent 09/29/2020. FINDINGS: LINES AND TUBES: Status post removal of the right IJ [place]-Kai catheter. Mediastinum and left chest drains are stable. LUNGS AND PLEURA: Elevation of the left hemidiaphragm with developing left basilar airspace disease, concerning for atelectasis. Minimal airspace disease, likely atelectasis in the right lung base. Otherwise the lungs are clear. No large pleural effusion. No pneumothorax. HEART, MEDIASTINUM AND MICAH: The heart and mediastinal contours are stable BONES AND SOFT TISSUES: No acute abnormality. Intact sternal hardware. Mild degenerative changes in the spine. IMPRESSION: Elevation of the left hemidiaphragm with developing airspace disease in the lung base, likely developing atelectasis. WSN: [id number] Ordering Physician: Josh Eason Dictated By: Jay Prescott MD Dictated Date/Time: 10/02/20 11:24 a Reviewed By: Jay Prescott MD Signed By: Jay Prescott MD Signed Date/Time: 10/02/20 11:24 am Transcribed By: SHAHBAZ Transcribed Date/Time: 10/02/20 11:21 am * Exam Date Time Procedure Performing Provider Status 09/29/20 5:53 AM Chest Portable Rima Brooke; Aut h (Verified) Notes: (Chest Portable) Reason For Exam: S/P Cardiac Surgery RESULT: Chest Portable Chest Portable INDICATION: Status post cardiac surgery. COMPARISON: multiple priors, the most [id number]/2020. FINDINGS: LINES AND TUBES: Right IJ [place]-Kai catheter terminating at the right pulmonary artery. Unchanged mediastinal drain,left chest tube. Unchanged epicardial pacing wires. LUNGS AND PLEURA: Linear opacities at the right lung base, left retrocardiac region, likely atelectasis. Normal pulmonary vascularity. No pleural effusion. No pneumothorax. HEART, MEDIASTINUM AND MICAH: Heart is normal in size. Normal upper mediastinal and hilar contour. BONES AND SOFT TISSUES: No acute abnormality. IMPRESSION: Multiple linear opacities at bilateral lung bases, likely atelectasis. Support lines as above. I have personally reviewed the images and I agree with this report. WSN: [id number] Ordering Physician: Katy Boudreaux Dictated By: Main[Radiology] Jaki RODRIGUEZ Dictated Date/Time: 09/29/20 11:45 a Reviewed By: Hung Alford MD Signed By: Hung Alford MD Signed Date/Time: 09/29/20 11:50 am Transcribed By: SHAHBAZ Transcribed Date/Time: 09/29/20 11:40 am * Exam Date Time Procedure Performing Provider Status 09/28/20 6:48 PM Chest Portable Jackelin Mello; Renee ( Verified) Notes: (Chest Portable) Reason For Exam: S/P Cardiac Surgery RESULT: Chest Portable Chest Portable Reason: S P Cardiac Surgery; Special Instructions: On Admission to [facility] COMPARISON: 09/21/2020. FINDINGS: LINES AND TUBES: Endotracheal and enteric tubes are likely appropriately positioned. Right IJ introducer sheath and [place]-Kai catheter with its tip in the right main pulmonary artery. There are 2 mediastinal and single left pleural drains in place. Portions of percutaneous pacer leads are also identified. LUNGS AND PLEURA: Minimal basilar atelectasis. No pleural effusion. No pneumothorax. HEART, MEDIASTINUM AND MICAH: Heart is normal in size. Postsurgical changes suggesting CABG. BONES AND SOFT TISSUES: Multiple intact sternal wires. IMPRESSION: Expected immediate postoperative changes, lines and tubes appear appropriately positioned. WSN: [id number] Ordering Physician: Armaan Blackburn Dictated By: Parmjit Avilez MD Dictated Date/Time: 09/28/20 6:55 pm Reviewed By: Parmjit Avilez MD Signed By: Parmjit Avilez MD Signed Date/Time: 09/28/20 6:55 pm Transcribed By: SHAHBAZ Transcribed Date/Time: 09/28/20 6:52 pm Vital Signs Most recent to oldest [Reference Range]: 1 2 3 Height 179 cm (10/03/20 11:30 AM) 179 cm (10/03/20 8:08 AM) 179 cm (10/03/20 3:54 AM) Weight 91.0 kg (10/02/20 4:28 AM) 92.1 kg (10/01/20 7:16 AM) 90.8 kg (09/30/20 5:21 AM) Oxygen Saturation [94-100 %] 98 % (10/03/20 2:00 PM) 98 % (10/03/20 11:30 AM) 98 % (10/03/20 8:08 AM) Pulse Rate [55-90 bpm] 75 bpm (10/03/20 2:00 PM) 75 bpm (10/03/20 11:30 AM) 81 bpm (10/03/20 9:08 AM) Body Mass Index [18.5-24.99] 28.34 *H* (09/30/20 5:21 AM) 26.59 *H* (09/28/20 2:35 AM) 26.65 *H* (09/27/20 2:39 AM) Blood Pressure [90-138/55-84 mm Hg] 116/51mm Hg (10/03/20 2:00 PM) 116/51mm Hg (10/03/20 11:30 AM) 122/55mm Hg (10/03/20 9:08 AM) Respiratory Rate [16-30 br/min] 18 br/min (10/03/20 2:00 PM) 18 br/min (10/03/20 11:30 AM) 18 br/min (10/03/20 10:08 AM) Temperature [96.8-100.4 DegF] 98.3 DegF (10/03/20 2:00 PM) 98.3 DegF (10/03/20 11:30 AM) 98.6 DegF (10/03/20 8:08 AM) Liters per Minute 1 L/min (09/30/20 7:49 AM) 2 L/min (09/30/20 5:20 AM) 2 L/min (09/30/20 12:42 AM) Mode of Delivery (Oxygen) Room air (10/03/20 2:00 PM) Room air (10/03/20 11:30 AM) Room air (10/03/20 8:08 AM) Blood pressure sites Arm, right (10/03/20 11:30 AM) Arm, right (10/03/20 8:08 AM) Arm, right (10/03/20 3:54 AM) Temperature Route Oral (10/03/20 11:30 AM) Oral (10/03/20 8:08 AM) Oral (10/03/20 3:54 AM) Dry Weight 86.9 kg (09/21/20 11:45 PM) Weight Obtained Via Bed scale (10/02/20 4:28 AM) Bed scale (09/30/20 12:42 AM) Bed scale (09/28/20 2:35 AM) Dry Weight Obtained Via Bed scale (09/21/20 11:45 PM) Social History Social History Type Response Smoking Status Former smoker, quit more than 30 days ago; Other: quit 1981; entered on: 09/21/20 Sex
--- OUTSIDE RECORDS SUMMARY | 2023-10-17 09:18 | XMS_ITS | Continuity of Care Document ---
Author Organization [facility] Address [address] [place] [address]- Care Team Providers Care Band Presser Name Role Phone Cornelia RODRIGUEZ, Traci Acuña Primary Care Physician Encounter 10/04/20 - 10/22/20 [facility] [address] [place] [address]- Discharge Disposition: CLIENT NO LONGER REQUIRES SKILLED CARE Allergies, Adverse Reactions, Alerts Substance Reaction Severity [...] 10/03/20 11:32:00 EDT, Route to Pharmacy Electronically, [facility] #[id number], Partial fill uponpatient request if the prescription is for a schedu... Start Date: 10/03/20 Status: Ordered aspirin 81 mg oral delayed release tablet 1 tablet = 81 mg, By Mouth, Daily, # 180 tablet, 0 Refills, Maintenance, 10/03/20 11:32:00 EDT, EC Tablet, [facility] #[id number], Partial fill upon patient request if the prescription is for a schedule II opioid drug., 179, cm, 10/03/20 11:30:00... Start Date: 10/03/20 Stop Date: 04/01/21 Status: Ordered atorvastatin 80 mg oral tablet 1 tablet = 80 mg, By Mouth, Daily at bedtime, # 30 tablet, 5 Refills, Maintenance, 10/17/20 14:50:00 EDT, Tablet, [facility] #[id number], Partial fill upon patient request if the prescription is for a schedule II opioid drug., 179, cm, 10/13/20 10... Start Date: 10/17/20 Status: Ordered Januvia 100 mg oral tablet 1 tablet, By Mouth, Daily, # 30 tablet, 5 Refills, Maintenance, 09/17/20 12:34:00 EDT, [facility] #[id number] Start Date: 09/17/20 Status: Ordered Lasix 40 mg oral tablet 40 mg, 1, tablet, By Mouth, Daily, # 30 tablet, Refills 0, Tot. Refills 0, Maintenance, 10/03/20 11:33:00 EDT, Route to Pharmacy Electronically, [facility] #[id number], Partial fill upon patient request if the prescription is for a schedule II opi... Start Date: 10/03/20 Status: Ordered MetFORMIN (Eqv-Glucophage XR) 500 mg oral tablet, extended release See Instructions, TAKE 2 TABLETS BY MOUTH ONCE DAILY AT SUPPER, # 60 tablet, 5 Refills, Maintenance, [facility] #[id number] Start Date: 09/17/20 Status: Ordered metoprolol 100 mg oral tablet, extended release 100 mg, 1, tablet, By Mouth, Daily, # 30 tablet, Refills 0, Tot. Refills 0, Maintenance, 10/03/20 11:33:00 EDT, Route to Pharmacy Electronically, [facility] #[id number], Partial fill upon patientrequest if the prescription is for a schedule II op... Start Date: 10/03/20 Status: Ordered Plavix 75 mg oral tablet 75 mg, 1, tablet, By Mouth, Daily, # 30 tablet, Refills 0, Tot. Refills 0, Maintenance, 10/03/20 11:32:00 EDT, Route to Pharmacy Electronically, [facility] #[id number], Partial fill upon patient request if the prescription is for a schedule II opi... Start Date: 10/03/20 Status: Ordered potassium chloride 10 mEq oral tablet, extended release 4 tablet = 40 mEq, By Mouth, Daily, discontinue when lasix stopped, # 120 tablet, 0 Refills, Maintenance, 10/03/20 11:35:00 EDT, ER Tablet, [facility] #[id number], Partial fill upon patient request if the [...]
--- OUTSIDE RECORDS SUMMARY | 2023-10-17 09:18 | XMS_ITS | Continuity of Care Document ---
Author Organization [facility] Address [address] [place] [address]- Care Team Providers Care Manager Poker Name Role Phone Braxton Goins MD Primary Care Physician [phone] Encounter [facility] Date(s): 08/11/22 - 09/10/22 [facility] [address] [place] [address]- [place] Allergies, Adverse Reactions, Alerts Substance Reaction [...] Refills, Maintenance, 10/03/20 11:32:00 EDT, EC Tablet, [facility] #[id number], Partial fill upon patient request if the prescription is for a schedule II opioid drug., 179, cm, 10/03/20 11:30:00... Start Date: 10/03/20 Stop Date: 04/01/21 Status: Ordered atorvastatin 80 mg oral tablet 1 tablet, By Mouth, Daily at bedtime, # 90 tablet, 3 Refills, 03/07/22 8:51:00 EDT, [facility] #[id number], 178, cm, 01/07/22 10:54:00 EDT, Height, 86.2, kg, 04/17/21 10:50:00 EST, Dry Weight Start Date: 03/07/22 Status: Ordered hydrochlorothiazide 25 mg oral tablet 12.5 mg, 0.5, tablet, By Mouth, Daily, # 30 tablet, Refills 8, 01/07/22 16:41:00 EDT, Route to Pharmacy Electronically, [facility] #[id number], 178, cm, 10/07/21 8:40:00 EDT, Height, 86.2, kg, 04/17/21 10:50:00 EST, Dry Weight Start Date: 12/22/21 Status: Ordered Januvia 100 mg oral tablet 1 tablet, By Mouth, Daily, # 30 tablet, 5 Refills, Maintenance, 05/31/22 12:08:00 EST, [facility] #[id number], 178, cm, 05/16/22 9:59:00 EST, Height, 86.2, kg, 04/17/21 10:50:00 EST, Dry Weight Start Date: 05/31/22 Status: Ordered lisinopril 20 mg oral tablet 20 mg, 1, tablet, By Mouth, Daily, # 30 tablet, Refills 6, Tot. Refills 6, Maintenance, 10/01/21 10:53:00 EDT, Route to Pharmacy Electronically, [facility] #[id number], Partial fill upon patient request if the prescription is for a schedule II opi... Start Date: 10/01/21 Status: Ordered lisinopril 20 mg oral tablet 1, tablet, By Mouth, Daily, # 30 tablet, Refills 11, Maintenance, 05/01/22 10:23:00 EST, Route to Pharmacy Electronically, [facility] #[id number], 178, cm, 01/07/22 10:54:00 EDT, Height, 86.2, kg, 04/17/21 10:50:00 EST, Dry Weight Start Date: 05/01/22 Status: Ordered MetFORMIN (Eqv-Glucophage XR) 500 mg oral tablet, extended release See Instructions, TAKE 2 TABLETS BY MOUTH EVERY DAY AT SUPPER, # 60 tablet, 5 Refills, 07/14/22 10:53:00 EST, [facility] #[id number], 178, cm, 07/08/22 8:42:00 EST, Height, 86.2, kg, 04/17/21 10:50:00 EST, Dry Weight Start Date: 07/14/22 Status: Ordered metoprolol 25 mg oral tablet, extended release 25 mg, 1, tablet, By Mouth, Daily, # 90 tablet, Refills 3, Tot. Refills 3, Maintenance, 08/11/22 12:35:00 EST, Route to Pharmacy Electronically, [facility] #[id number], Partial fill upon patient request if the prescription is for a schedule II opi... Start Date: 08/11/22 Stop Date: 08/06/23 Status: Ordered tamsulosin 0.4 mg oral capsule 1, capsule, By Mouth, Daily at bedtime, # 90 capsule, Refills 1, Maintenance, 08/03/22 21:41:00 EST, Route to Pharmacy Electronically, [facility] #[id number], 178, cm, 07/08/22 8:42:00 EST, Height, 86.2, kg, 04/17/21 10:50:00 EST, Dry Weight Start Date: 08/03/22 Status: Ordered Problem List Condition Confirmation Course Effective Dates Status Health Status Informant Abnormal bowel movement Confirmed Active Benign essential hypertension Confirmed Active Coronary artery [...] Care team information Care Team Personnel Name: Laura Shook RN Position: [facility] RN Member Role: Primary Care Nurse Name: Lena Andrade RN Position: [facility] RN Member Role: Primary Care Nurse Name: Robinson Kaufman RN Position: [facility] RN Member Role: Primary Care Nurse Name: Genesis Workman Position: [facility] RN Member Role: Primary Care Nurse Name: Donna Quinonez RN Position: [facility] RN Member Role: Primary Care Nurse Name: Elodia Bright RN Position: [facility] PCO RN Member Role: Primary Care Nurse Name: Samantha Oviedo RN Position: [facility] RN Member Role: Primary Care Nurse Name: Bebe Tam RN Position: [facility] RN Member Role: Primary Care Nurse Name: Braxton Goins MD Position: [facility] Primary Care Physician Member Role: PCP Address: Address: [address] [place] [address], [address] [place] [address]- Name: Ella Means RN Position: [facility] RN Member Role: Primary Care Nurse Care Team Related Persons Name: RODNEY THORPE Address: [address] [place] [address] Name: JANELLE THORPE Address: [address] [place] [address]
--- OUTSIDE RECORDS SUMMARY | 2023-10-17 09:18 | XMS_ITS | Continuity of Care Document ---
Author Organization [facility] Address [address] [place] [phone]- Care Team Providers Care Collections Associate Name Role Phone Cornelia RODRIGUEZ, Traci Acuña Primary Care Physician Encounter [facility] Date(s): 01/14/21 - 02/13/21 [facility] [address] [place] [address]- Allergies, Adverse Reactions, Alerts Substance Reaction Severity Status penicillins 1 Active 1Hives as a child Immunizations Given and Recorded Vaccine Date Status Refusal Reason SARS-CoV-2 (COVID-19) mRNA-1273 vaccine 08/05/20 R ecorded [...] Refills, Maintenance, 10/03/20 11:32:00 EDT, EC Tablet, [facility] #[id number], Partial fill upon patient request if the prescription is for a schedule II opioid drug., 179, cm, 10/03/20 11:30:00... Start Date: 10/03/20 Stop Date: 04/01/21 Status: Ordered atorvastatin 80 mg oral tablet 1 tablet = 80 mg, By Mouth, Daily at bedtime, # 90 tablet, 3 Refills, Maintenance, 11/11/20 10:55:00 EDT, Tablet, [facility] #[id number], Partial fill upon patient request if the prescription is for a schedule II opioid drug., 179, cm, 11/11/20 10... Start Date: 11/11/20 Status: Ordered clopidogrel 75 mg oral tablet 1, tablet, By Mouth, Daily, # 90 tablet, Refills 3, Tot. Refills 3, Maintenance, 11/11/20 10:55:00 EDT, Route to Pharmacy Electronically, [facility] #[id number], 179, cm, 11/11/20 10:24:00 EDT, Height, 82, kg, 10/26/20 14:24:00 EDT, Dry Weight Start Date: 11/11/20 Status: Ordered Januvia 100 mg oral tablet 1 tablet, By Mouth, Daily, # 30 tablet, 5 Refills, Maintenance, 09/17/20 12:34:00 EDT, [facility] #[id number] Start Date: 09/17/20 Status: Ordered MetFORMIN (Eqv-Glucophage XR) 500 mg oral tablet, extended release See Instructions, TAKE 2 TABLETS BY MOUTH ONCE DAILY AT SUPPER, # 60 tablet, 5 Refills, Maintenance, [facility] #[id number] Start Date: 09/17/20 Status: Ordered metoprolol 50 mg oral tablet, extended release 50 mg, 1, tablet, By Mouth, Daily, # 90 tablet, Refills 0, Tot. Refills 0, Maintenance, 11/11/20 10:51:00 EDT, Route to Pharmacy Electronically, [facility] #[id number], Partial fill upon patient request if the [...]
--- OUTSIDE RECORDS SUMMARY | 2023-10-17 09:18 | XMS_ITS | Continuity of Care Document ---
Author Organization [facility] Address [address] [place] [id number] Care Team Providers Care Mechanical Engineering Lecturer Name Role Phone Traci Locke MD Primary Care Physician [place] [facility] [place]24[place] - 07/24/[address] [address]- [facility] Attending Physician: Traci Locke MD Allergies, Adverse Reactions, Alerts Substance Reaction Severity Status penicillins Active Immunizations Given and Recorded Vaccine Date Status Refusal Reason pneumococcal 13-valent vaccine 09/23/14 Recorded zoster vaccine, inactivated 09/23/14 Recorded Influenza Virus Vaccine (oldterm) 03/01/13 Recorde d pneumococcal 23-valent vaccine 12/26/11 Recorded diphtheria/tetanus/pertussis, acel(DTaP) 12/26/11 Recorded Medications aspirin 81 mg oral tablet ORAL, TABLET, 0 Refill(s),, 0 Refills, 09/21/18 15:39:00 EDT Start Date: 09/21/18 Status: Ordered atorvastatin 20 mg oral tablet See Instructions, # 30 tablet, Refills 3 Tot. Refills 3, TAKE 1 TABLET BY MOUTH EVERY DAY, [facility] #[id number] Start Date: 04/28/19 Status: Ordered fluticasone 50 mcg/inh nasal spray 2 sprays, Nares, Both, Daily, # 16 Gm, 0 Refills, Maintenance, 07/24/19 9:21:00 EST, Nasal [place], [facility] #[id number], 2 sprays Nares, Both Daily Start Date: 07/24/19 Status: Ordered Januvia 100 mg oral tablet See Instructions, # 30 tablet, Refills 5 Tot. Refills 5, TAKE 1 TABLET BY MOUTH ONCE DAILY, [facility] #[id number] Start Date: 02/27/19 Status: Ordered lisinopril 10 mg oral tablet See Instructions, # 30 tablet, Refills 3 Tot. Refills 3, TAKE 1 TABLET BY MOUTH EVERY MORNING, [id number] Start Date: 04/26/19 Status: Ordered metFORMIN 500 mg oral tablet, extended release See Instructions, # 60 tablet, Refills 5 Tot. Refills 5, TAKE 2 TABLETS BY MOUTH ONCE DAILY AT SUPPER, [id number] Start Date: 02/27/19 Status: Ordered sildenafil 100 mg oral tablet 1 tablet = 100 mg, By Mouth, Daily, 1 hour before sexual activity, # 10 tablet, 0 Refills, Maintenance, 07/24/19 9:25:00 EST, Tablet, [facility][id number] Start Date: 07/24/19 Status: Ordered Problem List Condition Effective Dates Status Health Status Inform ant Benign essential hypertension(Confirmed) Active Cough(Confirmed) Active Hypercholesterolemia(Confirmed) Active 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
--- NOTE | 2023-10-17 09:46 | AM.OFFWIN_ITS ---
Intake Vital Signs 10/17/23 09:48 Height 5 ft 10 in Weight 187 lb BMI 26.8 BP 120/62 Blood Pressure Location Rt brachial Position Sitting Respiration 16 Pulse 57 Pulse Source Pulse Oximeter Temp 98.1 F Temp Source Oral Pulse Oximetry (%) 97 Oxygen Delivery Method Room Air Intake Visit Reasons: Gout Intake Note: Possible gout left foot. 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 He states that he wonders if he has gout. Denies any joint swelling, erythema or warmth. No trauma. He states that about a week ago he noticed when he would wake up in the morning and go to step down he would feel pain in the bottom of his foot. He states it is mostly in the arch. It gets a little bit better with walking around but it still noticeable. [facility] Medical History (Updated 10/17/23 @ 10:39 by Lesa Potter PA-C) Murmur HTN (hypertension), benign Social History Patient Tobacco Use Status: Former Tobacco user Physical Exam Vital Signs: Last Vital Signs Temp 98.1 F 10/17/23 09:48 Pulse 57 10/17/23 09:48 Resp 16 10/17/23 09:48 BP 120/62 10/17/23 09:48 Pulse Ox 97 10/17/23 09:48 Oxygen Delivery Method Room Air 10/17/23 09:48 BMI result Body Mass Index 26.8 Const Orientation/consciousness: patient oriented x3 HEENT Ears: hearing grossly normal bilaterally Neck Thyroid: Thyroid normal Lymphatic: no lymphadenopathy noted Resp Auscultation: clear to auscultation bilaterally Cardio Rate: regular rate Rhythm: regular rhythm Heart sounds: S1 normal heart sound present, S2 normal heart sound present and Murmur heart sound present Skin General skin exam: no rashes or lesions noted Neuro General: patient oriented x3, gait normal and no focal motor deficits Extrem Left lower extremity: normal to inspection, full ROM, normal capillary refill and foot Details: tenderness Location: of the plantar foot, toes with normal ROM, no edema, vascular exam Details: dorsalis pedis pulse present and motor- sensory exam Details: light-touch normal Assessment & Plan Assessment & Plan (1) Plantar fasciitis of left foot: Code(s): M72.2 - Plantar fascial fibromatosis Plan: Discussed that his physical exam and history is most consistent with plantar fasciitis. 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 He assures me that he has normal renal function. We did discuss there is also an increased risk of cardiovascular event because of his history of an KS. I have encouraged him to follow up with his PCP to discuss possibly seeing a echocardiographer if this reoccurs or does not improve. (2) HTN (hypertension), benign: Code(s): I10 - Essential (primary) hypertension Plan: Well-controlled today. Continue current regimen (3) Murmur: Code(s): R01.1 - Cardiac murmur, unspecified Plan: Discussed murmur noted on exam today. He tells me that he saw his manager culinary recently and she noted it as well and last week he had an echo. He does not yet have the results. There is no leg edema today. No chest pain or shortness a breath. Medications: New naproxen 500 mg PO BID 20 tabs 0RF Coding Level of Care Code Est Pt Level 4 (19468) Diagnoses Plantar fasciitis of left foot M72.2 HTN (hypertension), benign I10 Murmur R01.1
[2023-10-17 09:48] VITALS: BP 120/62; PULSE 57; RESP 16; TEMP 36.7; O2SAT 97; BMI 26.8
== END 2023-10-17 16:11 | disposition home or self-care (01) ==
PROVIDERS: PCP Internal Medicine; Visit Provider Physician Assistant
DX: M72.2 Plantar fascial fibromatosis (principal); I10 Essential (primary) hypertension; R01.1 Cardiac murmur, unspecified
CPT/HCPCS: 99214